=== PATIENT | female | born 1965 | race African-American/Black ===

== ENCOUNTER 2016-10-24 14:01 | Emergency (ER) | payer MEDICAID, OTHER ==
[~2016-10-24] VITALS: Ht 154.9 cm; Wt 65.8 kg
[~2016-10-24 14:01] MED LIST: CYCLOBENZAPRINE10 MG ORAL; DIFLUCAN150 MG PO; IBUPROFEN600 MG ORAL; METRONIDAZOLE500 MG ORAL; NAPROSYN250 M1 ORAL
[2016-10-24 14:09] VITALS: BP 180/96
--- NOTE | 2016-10-24 14:30 | Emergency Room Report ---
History of Present Illness General Chief Complaint: Flu Like Symptoms Source: Patient Present Illness HPI 51 YO Female presents to the ED c/o non-productive cough, nasal congestion, body -aches, chills and sneezing x 5 days. Denies fevers, abdominal pain or rashes. Patient reports on have similar symptoms denies recent travel. denies neck pain or stiffness. Denies CP, Palpitations, LOC, AMS, dizziness, Changes in Vision, Sensation, paresthesias, or a sudden severe headache. Allergies: Coded Allergies: No Known Allergies (Unverified , 04/04/15) Patient History Past Medical History: see triage record Past Surgical History: none Pertinent Family History: none Last Menstrual Period: na Now: No Immunizations: UTD Reviewed Nursing Documentation: PMH: Agreed, PSxH: Agreed Nursing Documentation-PMH Past Medical History: No History, Except For Review of Systems All Other Systems: negative except mentioned in HPI Physical Exam Vital Signs Date Time Temp Pulse Resp B/P Pulse Ox O2 Delivery O2 Flow Rate FiO2 10/24/16 14:09 98.4 99 18 180/96 100 Room Air Sp02 EP Interpretation: reviewed, normal General Appearance: no apparent distress, alert, GCS 15, non-toxic Head: normocephalic, atraumatic Eyes: bilateral eye PERRL, bilateral eye normal inspection ENT: hearing grossly normal, normal pharynx, no angioedema, normal voice, TMs + canals normal, uvula midline, moist mucus membranes, nasal congestion Neck: full range of motion, supple/symm/no masses Respiratory: lungs clear, normal breath sounds, speaking full sentences Cardiovascular #1: regular rate, rhythm, no edema Rectal: deferred Genitourinary: normal inspection, no CVA tenderness Musculoskeletal: back normal, gait/station normal, normal range of motion, non- tender Neurologic: alert, oriented x3, responsive, motor strength/tone normal, sensory intact, speech normal Psychiatric: judgement/insight normal, memory normal, mood/affect normal Skin: normal color, no rash, warm/dry, well hydrated Lymphatic: adenopathy - anterior cervical LAD bilaterally Medical Decision Making PA Attestation Dr. dominguez is my supervising Physician whom patient management has been discussed with. Diagnostic Impression: Primary Impression: Upper respiratory infection, viral Additional Impressions: Rhinitis Qualified Codes: J30.9 - Allergic rhinitis, unspecified Nasal congestion with rhinorrhea Post-nasal drainage ER Course Pt. presents to the ED c/o non-productive cough, nasal congestion, body-aches, chills and sneezing x 5 days. Ddx considered but are not limited to URI, pneumonia, PE, strep pharyngitis, meningitis, rhinitis Vital signs: Pt. is afebrile, the remaining VS are WNL H&PE are most consistent with URI- no meningeal signs, oropharynx is not involved, no evidence of bacterial infection at this time. ORDERS: none required at this time, the diagnosis is clinical ED INTERVENTIONS: None required at this time. --PT. EDUCATION: Discussed antibiotic resistance with inappropriate prescribing of antibiotics for viral illnesses. Discussed signs and symptoms to indicate viral illness versus bacterial illness. DISCHARGE: At this time pt. is stable for d/c to home. Will provide printed patient care instructions, and any necessary prescriptions. Care plan and follow up instructions have been discussed with the patient prior to discharge. Last Vital Signs Date Time Temp Pulse Resp B/P Pulse Ox O2 Delivery O2 Flow Rate FiO2 10/24/16 14:09 98.4 99 18 180/96 100 Room Air Disposition: HOME, SELF-CARE Condition: Stable Scripts Guaifenesin (Guaifenesin) 1,200 Mg Tab.er.12h 1200 MG PO BID for 10 Days, #20 TAB Prov: Siria Herrera.A. 10/24/16 Cetirizine Hcl/Pseudoephedrine (ZYRTEC-D TABLET) 1 Each Tab.er.12h 1 EACH ORAL Q12HR for 10 Days, #20 TAB Prov: Siria Herrera.A. 10/24/16 Codeine/Promethazine Hcl* (PROMETHAZINE-CODEINE SYRUP*) 118 Ml Syrup 5 ML ORAL Q6H Y for For Cough, #118 ML 0 Refills Prov: Siria Herrera.A. 10/24/16 Acetaminophen* (TYLENOL EXTRA STRENGTH*) 500 Mg Tablet 500 MG ORAL Q6H, #20 TAB 0 Refills Prov: Siria Herrera P.A. 10/24/16 Patient Instructions: Upper Respiratory Infection, Adult, [id number] Additional Instructions: Take medications as directed. Follow up with a Primary Care Provider in 3-5 days Return sooner to ED if new symptoms occur, or current symptoms become worse. Do not drink alcohol, drive, or operate heavy machinery while taking Cough Syrup as this may cause drowsiness. - Please note that this Emergency Department Report was dictated using [employer] edger technology software, occasionally this can lead to erroneous entry secondary to interpretation by the dictation equipment. Siria Herrera. Oct 24, 2016 14:30
[2016-10-24] MEDS ORDERED: TYLENOL EXTRA500 MG ORAL (14:33)
[2016-10-24] MEDS ORDERED: ZYRTEC-D TABLE1 EACH ORAL (14:33)
[2016-10-24] MEDS ORDERED: PROMETHAZINE-C118 M1 ORAL (14:33)
[2016-10-24] MEDS ORDERED: GUAIFENESIN1200 MG PO (14:33)
[2016-10-24 14:37] VITALS: BP 175/82
== END 2016-10-24 14:45 | disposition home or self-care (01) ==
LOC: EMR 14:45
DX: J06.9 Acute upper respiratory infection, unspecified (principal); B34.9 Viral infection, unspecified; J31.0 Chronic rhinitis
CPT/HCPCS: 99284

== ENCOUNTER 2018-07-24 13:29 | Emergency (ER) | payer MEDICAID, OTHER ==
[~2018-07-24] VITALS: Ht 157.5 cm; Wt 57.2 kg
[~2018-07-24 13:29] MED LIST changes: +GUAIFENESIN1200 MG PO; +PROMETHAZINE-C118 M1 ORAL; +TYLENOL EXTRA500 MG ORAL; +ZYRTEC-D TABLE1 EACH ORAL
[2018-07-24 13:39] VITALS: BP 127/83
--- NOTE | 2018-07-24 13:45 | NUR ---
ED Nurse Note: Patient walked into ED from home c/o right shoulder pain. patient reports that she pulled her right shoulder while excercising on 07/22/18, patient is alert and awake, ambulatory.
--- NOTE | 2018-07-24 13:57 | Emergency Room Report ---
History of Present Illness General Chief Complaint: Upper Extremity Injury Source: Patient Present Illness HPI 53-year-old female patient presents ER complaining of "I think I pulled a muscle in my shoulder". Reports she was working out at the gym when she began to experience pain in her right shoulder and scapula. Reports was doing a side twist exercise with her arms extended when the pain symptoms began. Reports pain worse with movement. Denies loss of range of motion. Reports pain in the posterior shoulder near her scapula. Denies fever, chest pain or shortness of breath. Denies history of diabetes. Reports he is right-hand dominant. Allergies: Coded Allergies: No Known Allergies (Unverified , 04/04/15) Patient History Past Medical History: see triage record Now: No Reviewed Nursing Documentation: PMH: Agreed; PSxH: Agreed Nursing Documentation-PMH Past Medical History: No History, Except For Review of Systems All Other Systems: negative except mentioned in HPI Physical Exam Vital Signs Date Time Temp Pulse Resp B/P (MAP) Pulse Ox O2 Delivery O2 Flow Rate FiO2 07/24/18 13:39 97.9 71 20 127/83 97 Sp02 EP Interpretation: reviewed, normal General Appearance: well appearing, no apparent distress, alert, GCS 15, non- toxic Head: normocephalic, atraumatic Eyes: bilateral eye normal inspection, bilateral eye PERRL ENT: hearing grossly normal, normal pharynx, no angioedema, normal voice, uvula midline, moist mucus membranes Neck: full range of motion, no bony tend Respiratory: lungs clear, normal breath sounds, no rhonchi, no respiratory distress, no accessory muscle use, no wheezing, speaking full sentences Cardiovascular #1: regular rate, rhythm, no edema Cardiovascular #2: 2+ radial (R), 2+ radial (L) Musculoskeletal: back normal, digits/nails normal, gait/station normal, normal range of motion, other - No deformity, negative Morales, negative Neer impingement, negative empty can, negative belly press, negative back pushoff, tender - Distal inferior right scapula Psychiatric: mood/affect normal Skin: no rash Medical Decision Making PA Attestation Dr. Acosta is my supervising Physician whom patient management has been discussed with. Diagnostic Impression: Primary Impression: Shoulder strain ER Course Pt. presents to the ED c/o "pulled muscle in right shoulder". Ddx considered but are not limited to fracture, sprain, strain, contusion, dislocation. No erythema, no warmth to touch, no fever, nontoxic appearing, low suspicion for septic joint. Soft compartments, no pulselessness, no pallor, no paresthesias, low suspicion for compartment syndrome at this time. Vital signs: are WNL, pt. is afebrile ER COURSE Provided with pain and muscle relaxant medication. An X-ray of the right scapula negative for acute disease per the preliminary reading. Patient instructed on RICE method: rest, ice, compression, elevation. Patient instructed on rest, ice and heat. Patient instructed to be WBAT Contact information for orthopedic urgent care provided, follow-up with urgent care if unable to followup with primary care provider and get referral to event specialist product demonstrator. Followup with primary care provider. Discuss referral to ortho/pain management/ PT as needed. Discuss further imaging with MRI/CT as needed. ER precautions DISCHARGE: At this time pt. is stable for d/c to home. Patient is resting comfortably, in no acute distress, nontoxic appearing, talking without difficulty. Will provide printed patient care instructions, and any necessary prescriptions. Patient instructed to follow with primary care provider in 3 - 5 days and to request further follow-up as needed. Care plan and follow up instructions have been discussed with the patient prior to discharge. Take medications as directed. Patient questions asked and answered. Patient reports understanding and agreement to treatment plan. ER precautions given, patient instructed to return to ER immediately for any new or worsening of symptoms. - Please note that this Emergency Department Report was dictated using [employer] facer technology software, occasionally this can lead to erroneous entry secondary to interpretation by the dictation equipment. Other X-Ray Diagnostic Results Other X-Ray Diagnostic Results : X-Ray ordered: Scapula right # of Views/Limited Vs Complete: 3 View Indication: Pain EP Interpretation: Yes PA Xray: Interpretation reviewed, by supervising MD, and agrees with findings. Interpretation: no dislocation, no soft tissue swelling, no fractures Impression: No acute disease LEOLA Scribe Text Trung Noriega PA-C Last Vital Signs Date Time Temp Pulse Resp B/P (MAP) Pulse Ox O2 Delivery O2 Flow Rate FiO2 07/24/18 13:39 97.9 71 20 127/83 97 Status: improved Disposition: HOME, SELF-CARE Condition: Stable Scripts Methocarbamol* (ROBAXIN*) 500 Mg Tablet 500 MG PO TID, #21 TAB 0 Refills Prov: Moris Noriega 07/24/18 Ibuprofen* (MOTRIN*) 600 Mg Tablet 600 MG ORAL Q8H PRN for For Pain, #30 TAB 0 Refills Prov: Moris Noriega 07/24/18 Patient Instructions: Shoulder Range of Motion Exercises, Shoulder Sprain Additional Instructions: Patient instructed to follow up with primary care provider and discuss further referral to orthopedics/physical therapy/pain management as needed. If unable to followup with PCP, followup with orthopedic urgent care in 5-7 days , call to schedule appointment. Patient instructed on RICE method: rest, ice, compression, elevation. Patient instructed to WBAT. Take medications as directed. Patient questions asked and answered. ER precautions given, patient instructed to return to ER immediately for any new or worsening of symptoms. [facility] [address] [address] [facility], [address] [email or web address] Moris Noriega Jul 24, 2018 13:57
[2018-07-24] MEDS ORDERED: Methocarbamol 500mg tab ORAL ONE (14:00)
[2018-07-24] MEDS ORDERED: Ketorolac 30mg Inj IM ONE (14:00)
--- NOTE | 2018-07-24 14:40 | NUR ---
ED Nurse Note: patient went down for xray
--- NOTE | 2018-07-24 14:50 | NUR ---
ED Nurse Note: patient came back from xray
[2018-07-24] MEDS ORDERED: IBUPROFEN600 MG ORAL (15:14)
[2018-07-24] MEDS ORDERED: ROBAXIN500 MG PO (15:14)
--- NOTE | 2018-07-24 15:20 | NUR ---
ER DISCHARGE NOTE: Patient is cleared to be discharged per ERMD, pt is aox4, on room air, with stable vital signs. pt was given dc and prescription instructions, pt was able to verbalize understanding, pt id band removed without complications. pt is able to ambulate with steady gait. pt took all belongings.
[2018-07-24 15:22] VITALS: BP 120/81
--- NOTE | 2018-07-24 16:53 | Diagnostic Imaging Report ---
Indication: Pain in right scapular area from twisting motion Technique: 2 views of the right scapula Comparison: none Findings: No fractures are demonstrated. The shoulder appears normal. The joint spaces are preserved. The ribs appear intact Impression: Negative
== END 2018-07-24 15:20 | disposition home or self-care (01) ==
LOC: EMR 14:11
DX: S43.401A Unspecified sprain of right shoulder joint, initial encounter (principal); X58.XXXA Exposure to other specified factors, initial encounter; Y93.B9 Activity, other involving muscle strengthening exercises; Y92.9 Unspecified place or not applicable
CPT/HCPCS: 73010; 96372; 99283; J1885

== ENCOUNTER 2019-04-27 16:23 | Emergency (ER) | payer MEDICAID ==
[~2019-04-27] VITALS: Ht 154.9 cm; Wt 59.0 kg
[~2019-04-27 16:23] MED LIST changes: +ROBAXIN500 MG PO
[2019-04-27 16:32] VITALS: BP 115/68
[2019-04-27] MEDS ORDERED: ATORVASTATIN CA20 MG ORAL (16:32)
[2019-04-27] MEDS ORDERED: VITAMIN D350000 UNIT PO (16:32)
--- NOTE | 2019-04-27 17:22 | Diagnostic Imaging Report ---
EXAM: XR Right Knee, 3 Views CLINICAL HISTORY: PAIN TECHNIQUE: Three views of the right knee. COMPARISON: No relevant prior studies available. FINDINGS: Bones/joints: No acute displaced fracture or dislocation. No significant joint effusion. Soft tissues: Unremarkable. IMPRESSION: No acute displaced fracture or dislocation.
--- NOTE | 2019-04-27 17:43 | Emergency Room Report ---
History of Present Illness General Chief Complaint: Pain Source: Patient Present Illness HPI 54-year-old female with no significant past medical history here complaining of sudden onset of a 7 out of 10 right knee pain without any fall or injury x3 days. Patient has full range of motion, upon flexion extension of the knee denies any pain at this time. Reports that yesterday she had her pain at its worse and could not apply any pressure to her right knee. Denies any calf tenderness, swelling, recent travel, and sitting in the airplane for prolonged hours, cancer history, surgical history, and being on control. Denies any tingling or numbness at this time. She is postmenopausal. Has not taken medication for symptom relief. Denies all other injuries, chest pain, shortness of breath, palpitation, no other associated symptoms. Allergies: Coded Allergies: No Known Allergies (Unverified , 04/04/15) Patient History Past Medical History: see triage record Past Surgical History: unable to obtain Pertinent Family History: none Now: No Immunizations: UTD Reviewed Nursing Documentation: PMH: Agreed; PSxH: Agreed Nursing Documentation-PMH Past Medical History: No History, Except For Review of Systems All Other Systems: negative except mentioned in HPI Physical Exam Vital Signs Date Time Temp Pulse Resp B/P (MAP) Pulse Ox O2 Delivery O2 Flow Rate FiO2 04/27/19 16:27 98.2 98 17 115/68 (84) 99 Room Air Sp02 EP Interpretation: reviewed, normal General Appearance: no apparent distress, alert, GCS 15, non-toxic Head: normocephalic, atraumatic Eyes: bilateral eye normal inspection, bilateral eye PERRL ENT: hearing grossly normal, normal pharynx, no angioedema, normal voice Neck: full range of motion, supple, no meningismus, supple/symm/no masses Respiratory: chest non-tender, lungs clear, normal breath sounds, no rhonchi, no retraction, no wheezing, speaking full sentences Cardiovascular #1: regular rate, rhythm, no edema, no JVD, no murmur, normal capillary refill Cardiovascular #2: 2+ dorsalis pedis (R), 2+ dorsalis pedis (L) Gastrointestinal: normal bowel sounds, non tender, soft, non-distended, no guarding, no rebound Genitourinary: no CVA tenderness Musculoskeletal: back normal, normal range of motion, digits/nails normal, no calf tenderness, pelvis stable, gait/station normal, non-tender Neurologic: alert, motor strength/tone normal, oriented x3, sensory intact, responsive, speech normal Psychiatric: judgement/insight normal, memory normal, mood/affect normal, no suicidal/homicidal ideation Skin: no rash Lymphatic: no adenopathy Medical Decision Making PA Attestation All my diagnosis and treatment plans were reviewed ad discussed with my supervising physician Dr. Acosta Diagnostic Impression: Primary Impression: Arthritis Additional Impression: Knee sprain ER Course 54-year-old female with no significant past medical history here complaining of sudden onset of a 7 out of 10 right knee pain without any fall or injury x3 days. Patient has full range of motion, upon flexion extension of the knee denies any pain at this time. Reports that yesterday she had her pain at its worse and could not apply any pressure to her right knee. Denies any calf tenderness, swelling, recent travel, and sitting in the airplane for prolonged hours, cancer history, surgical history, and being on control. Denies any tingling or numbness at this time. She is postmenopausal. Has not taken medication for symptom relief. Denies all other injuries, chest pain, shortness of breath, palpitation, no other associated symptoms. Ddx considered but are not limited to: Knee sprain, strain, fracture, contusion , meniscus tear injury Vital signs: are WNL, pt. is afebrile H&PE are most consistent with: Knee sprain, arthritis of the knee ORDERS: Knee x-ray, lidocaine patch, Robaxin, Motrin ER intervention: lidocaine patch DISCHARGE: At this time pt. is stable for d/c to home. Will provide printed patient care instructions, and any necessary prescriptions. Care plan and follow up instructions have been discussed with the patient prior to discharge. Patient to follow-up with her primary care provider, take medication as directed, if worsening symptoms return to the emergency room. Other X-Ray Diagnostic Results Other X-Ray Diagnostic Results : X-Ray ordered: Right knee # of Views/Limited Vs Complete: 3 View Indication: Pain EP Interpretation: Yes PA Xray: Interpretation reviewed, by supervising MD, and agrees with findings. Interpretation: no dislocation, no soft tissue swelling, no fractures Impression: No acute disease Electronically Signed by: Jamel BHAGAT Scribe Text IMPRESSION: No acute displaced fracture or dislocation. Last Vital Signs Date Time Temp Pulse Resp B/P (MAP) Pulse Ox O2 Delivery O2 Flow Rate FiO2 04/27/19 16:32 98.1 61 17 115/68 99 Room Air Disposition: HOME, SELF-CARE Condition: Stable Scripts Lidocaine Patch* (Lidoderm Patch*) 1 Each Adh..patch 1 PATCH TOPIC DAILY, #7 PATCH 0 Refills Patch(es) may remain in place for up to 12 hours in any 24-hour period. Prov: Jamel Simon 04/27/19 Ibuprofen* (MOTRIN*) 600 Mg Tablet 600 MG ORAL Q8H PRN for For Pain, #30 TAB 0 Refills Prov: Jamel Simon 04/27/19 Methocarbamol* (ROBAXIN-500*) 500 Mg Tablet 500 MG ORAL TID PRN for For Pain, #15 TAB 0 Refills Prov: Jamel Simon 04/27/19 Patient Instructions: Arthritis, Uban-ev-Iwjc, Knee Sprain, Dnva-ar-Ooym Additional Instructions: , Take medication as directed, follow-up with your primary care provider, if worsening symptoms return to the emergency room Jamel Simon Apr 27, 2019 17:43
[2019-04-27] MEDS ORDERED: IBUPROFEN600 MG ORAL (17:45)
[2019-04-27] MEDS ORDERED: ROBAXIN-500MG ORAL (17:45)
[2019-04-27] MEDS ORDERED: LIDODERM700 M1 TOPIC (17:45)
[2019-04-27 18:04] VITALS: BP 115/68
== END 2019-04-27 18:04 | disposition home or self-care (01) ==
LOC: EMR 17:43
DX: S83.91XA Sprain of unspecified site of right knee, initial encounter (principal); M17.11 Unilateral primary osteoarthritis, right knee; X58.XXXA Exposure to other specified factors, initial encounter; Y93.9 Activity, unspecified; Y92.9 Unspecified place or not applicable
CPT/HCPCS: 73562; Z7502; 99283

== ENCOUNTER 2020-04-26 17:16 | Emergency (ER) | payer MEDICAID ==
[~2020-04-26] VITALS: Ht 154.9 cm; Wt 59.0 kg
[~2020-04-26 17:16] MED LIST changes: +AFRIN NASAL SPR30 ML NASAL; +ATORVASTATIN CA20 MG ORAL; +LIDODERM700 M1 TOPIC; +ROBAXIN-500MG ORAL; +TAMIFLU75 MG ORAL; +VITAMIN D350000 UNIT PO
[2020-04-26 17:23] VITALS: BP 164/94
--- NOTE | 2020-04-26 17:53 | Emergency Room Report ---
History of Present Illness General Chief Complaint: Upper Respiratory Illness Source: Patient Present Illness HPI 55-year-old female with no significant past medical history here complaining of 1 day of cough, congestion and chills. Denies loss of taste and smell, diarrhea, chest pain. Appears to be stable with stable vital signs. Denies tobacco smoke, alcohol intake reports that she smokes marijuana. Denies . Has not taken medication for symptom relief. 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 COVID-19 Screening: Negative COVID-19 COVID-19 Testing Source: 4 months ago Patient History Past Medical History: see triage record Past Surgical History: none Pertinent Family History: none Now: No Immunizations: UTD Reviewed Nursing Documentation: PMH: Agreed; PSxH: Agreed Nursing Documentation-PMH Past Medical History: No History, Except For Review of Systems All Other Systems: negative except mentioned in HPI Physical Exam Vital Signs Date Time Temp Pulse Resp B/P (MAP) Pulse Ox O2 Delivery O2 Flow Rate FiO2 04/26/20 17:23 99.0 101 15 164/94 (117) 97 Room Air Sp02 EP Interpretation: reviewed, normal General Appearance: no apparent distress, alert, GCS 15, non-toxic Head: normocephalic, atraumatic Eyes: bilateral eye normal inspection, bilateral eye PERRL ENT: hearing grossly normal, no angioedema, normal voice Neck: supple Respiratory: no respiratory distress, no retraction, no accessory muscle use Cardiovascular #1: regular rate, rhythm Gastrointestinal: soft, non-distended Rectal: deferred Musculoskeletal: back normal Neurologic: alert, motor strength/tone normal, oriented x3, sensory intact, responsive, speech normal Psychiatric: judgement/insight normal, memory normal, mood/affect normal, no suicidal/homicidal ideation Skin: no rash Lymphatic: no adenopathy Medical Decision Making PA Attestation All diagnoses and treatment plans were reviewed and discussed with my supervising physician Dr. Wakefield Diagnostic Impression: Primary Impression: Upper respiratory infection ER Course 55-year-old female with no significant past medical history here complaining of 1 day of cough, congestion and chills. Denies loss of taste and smell, diarrhea, chest pain. Appears to be stable with stable vital signs. Denies tobacco smoke, alcohol intake reports that she smokes marijuana. Denies . Has not taken medication for symptom relief. Ddx considered but are not limited to: bronchitis, PNA, URI viral, bacterial bronchitis, coronavirus Vital signs: are WNL, pt. is afebrile H&PE are most consistent with: URI, suspected coronavirus ORDERS: Chest x-ray, azithromycin, prednisone, Phenergan ED INTERVENTIONS: None required at this time. DISCHARGE: At this time pt. is stable for d/c to home. Will provide printed patient care instructions, and any necessary prescriptions. Care plan and follow up instructions have been discussed with the patient prior to discharge. Recommend patient to get tested for Covid. Take medication as directed, self isolate, if worsening symptoms return to the emergency room Chest X-Ray Diagnostic Results Chest X-Ray Diagnostic Results : # of Views/Limited/Complete: 1 View Indication: Other - cough EP Interpretation: Yes PA Xray: Interpretation reviewed, by supervising MD, and agrees with thu marcus. Interpretation: no consolidation, no effusion, no pneumothorax Impression: No acute disease Electronically Signed by: Jamel Broderick PA-C Last Vital Signs Date Time Temp Pulse Resp B/P (MAP) Pulse Ox O2 Delivery O2 Flow Rate FiO2 04/26/20 17:27 101 15 Room Air 04/26/20 17:23 99.0 164/94 97 Disposition: HOME, SELF-CARE Condition: Stable Scripts Promethazine Hcl (PROMETHAZINE HCL*) 6.25 Mg/5 Ml Syrup 5 ML ORAL Q8H, #120 ML 0 Refills Prov: Jamel Simon 04/26/20 Prednisone* (PREDNISONE*) 20 Mg Tablet 40 MG ORAL DAILY for 5 Days, #10 TAB Prov: Jamel Simon 04/26/20 Azithromycin* (ZITHROMAX*) 250 Mg Tablet 250 MG ORAL DAILY, #6 TAB 0 Refills Take two tables once daily for 1 day, then one tablet once daily for 4 days. Prov: Jamel Simon 04/26/20 Referrals: [facility],REFERRING (PCP) Patient Instructions: Upper Respiratory Infection, Adult Additional Instructions: Take medication as directed, follow primary care provider, I recommend you get tested for Covid in 2 to 3 days after the onset of your symptoms, self isolate. If worsening symptom, shortness of breath return to the emergency room Jamel Simon Apr 26, 2020 17:53
[2020-04-26] MEDS ORDERED: PROMETHAZI6.25 MG/1 ORAL (17:55)
[2020-04-26] MEDS ORDERED: PREDNISONE20 MG ORAL (17:55)
[2020-04-26] MEDS ORDERED: ZITHROMAX250 MG ORAL (17:55)
[2020-04-26 18:00] VITALS: BP 152/90
--- NOTE | 2020-04-26 18:40 | Diagnostic Imaging Report ---
EXAM: XR Chest, 1 View CLINICAL HISTORY: COUGH TECHNIQUE: Frontal view of the chest. COMPARISON: No relevant prior studies available. FINDINGS: Lungs: Unremarkable. No consolidation. Pleural space: Unremarkable. No pneumothorax. Heart: Unremarkable. No cardiomegaly. Mediastinum: Unremarkable. Bones/joints: Unremarkable. IMPRESSION: Normal chest x-ray.
== END 2020-04-26 18:00 | disposition home or self-care (01) ==
LOC: EMR 17:48
DX: J06.9 Acute upper respiratory infection, unspecified (principal)
CPT/HCPCS: 71045; Z7502; 99283

== ENCOUNTER 2020-05-09 22:31 | Emergency (ER) | payer MEDICAID ==
[~2020-05-09] VITALS: Ht 157.5 cm; Wt 59.0 kg
[~2020-05-09 22:31] MED LIST changes: +PREDNISONE20 MG ORAL; +PROMETHAZI6.25 MG/1 ORAL; +ZITHROMAX250 MG ORAL
[2020-05-09 23:00] VITALS: BP 149/81
[2020-05-09] MEDS ORDERED: Azithromycin 250mg tab ORAL ONE (23:00)
[2020-05-09] MEDS ORDERED: ZITHROMAX250 MG ORAL (23:01)
[2020-05-09] MEDS ORDERED: PROVENTIL HFA6.7 G1 IH (23:01)
[2020-05-09] MEDS ORDERED: TYLENOL EXTRA500 MG ORAL (23:01)
[2020-05-09] MEDS ORDERED: GUAIFENESIN DM118 M1 ORAL (23:01)
--- NOTE | 2020-05-09 23:01 | Emergency Room Report ---
History of Present Illness General Chief Complaint: Flu Like Symptoms Source: Patient Present Illness HPI 55-year-old female no prior medical history presenting with chief complaint of cough x3 weeks. Cough is nonproductive. Also associated with loss of taste and smell. Denies nausea, vomiting, diarrhea, hemoptysis, shortness of breath, chest pain, fever, headache, vision changes, neck pain, rash or any other symptoms. Positive sick contacts. patient's symptoms were gradual onset, severity was moderate, duration since 21 days. Quality: Dry cough Past medical history: Denies Past surgical history: Denies Smoking: Occasional tobacco use Alcohol use: Denies Drug use: Denies Review of systems: CONST: No fevers or chills, No night sweats PULMONARY: No productive cough, No shortness of breath CARDIAC: No chest pain, No palpitations GI: No vomiting, No diarrhea , No melena_or_BRBPR : No dysuria, No hematuria, No discharge NEURO: No new_focal_weakness_or_numbness, No confusion, No vision changes 14 point Review of Systems is otherwise negative except per HPI Physical Exam: GENERAL: Awake_alert_ nontoxic, no acute distress Spo2 98% on RA -normal EYES: Extraocular muscles are intact. Conjunctivae clear. Lids without swelling ENT: External nose and ear normal_in_appearance. Oropharynx clear. Head_atraumatic, Moist_oral_mucosa NECK: No JVD. No meningismus. No thyromegaly. Supple. Trachea midline RESP: Normal respiratory effort. Symmetric rise. No stridor. Clear_to_auscultation_No_rales_No_wheezes CARDIAC: Regular rate and regular rhytm. No_significant pedal edema. ABDOMEN: Soft. Nondistended. Nontender_No_rebound_or_guarding. MSK: Normal muscle tone, without rigidity. Extremities without asymmetric deformity or swelling. SKIN: Warm and dry. No visible cyanosis or pallor NEUROLOGIC: Alert, oriented x3. Motor_and_sensation_grossly_intact. No truncal ataxia. Gait_normal Psych: Normal mood and affect, normal judgment and insight - COORDINATION OF CARE Case was discussed with: Patient Any labs and imaging that were ordered were interpreted as part of the medical decision making: Medical Decision Making/Plan: DDx: includes COVID-19 / coronavirus infection, URI, bronchitis, viral syndrome, postnasal drip, versus less likely pneumonia, among others. The patient is nontoxic and well-appearing and has no significant shortness of breath or fever . The patient exhibits no evidence of respiratory distress. No evidence of ENT emergency, airway patent, tolerating oral liquids and solids. No stridor or difficulty breathing. Chest x-ray revealed L perihilar pna. Rapid COVID swab was positive. 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 The patient was instructed to follow up with their physician and instructed to return if worsens, progressively worsening shortness of breath or difficulty breathing, persistent fever, chest pains or discomfort, inability to keep medication or fluids down with or without vomiting, or any other new, worsening or concerning symptoms Patient was nontoxic with benign vital signs. Patient did not meet admission criteria and was stable for outpatient therapy. Patient was instructed to home quarantine for 14 days or until 3 days after their last fever, whichever is longer. Appropriate precautions were given. Strict return precautions given, including but limited to: Patient educated to notify a healthcare professional if they develop further symptoms that include chest pain, palpitations, significant SOB, fever, or other concerning symptoms. Discussed supportive care with rest, hydration, frequent handwashing and Tylenol and Motrin [id number] as needed for pain or fevers. Discussed strict return precautions. Verbal discharge with written instructions were given for COVID- 19. Patient is instructed to follow up with their primary care provider in 1-2 days, or return to the ED for worsening symptoms. Return to ED precautions were given. 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 Mediastinum normal. L perihilar infiltrate. Impression: L perihilar infiltrate The X-ray(s) were independently viewed and interpreted contemporaneously Electronically signed by Mariela bowers DO Reevaluation Time: 22:59 Last Vital Signs Date Time Temp Pulse Resp B/P (MAP) Pulse Ox O2 Delivery O2 Flow Rate FiO2 05/09/20 22:34 98.2 89 20 149/81 (103) 98 Room Air Status: improved Disposition: HOME, SELF-CARE Admit Decision Time: 22:59 Condition: Stable Scripts Albuterol Sulfate (PROVENTIL HFA) 6.7 Gm Hfa.aer.ad 6.7 GM IH QID for 7 Days, #6.7 GM Prov: Mariela Vigil D.O. 05/09/20 Acetaminophen* (TYLENOL EXTRA STRENGTH*) 500 Mg Tablet 500 MG ORAL Q8H PRN for Prn Headache/Temp > 101, #30 TAB 0 Refills Prov: Mariela Vigil D.O. 05/09/20 Guaifenesin/Dextromethorphan* (Guaifenesin Dm Syrup*) 5 Ml Syrup 5 ML ORAL Q6H PRN for FOR COUGH, #118 ML Prov: Mariela Vigil D.O. 05/09/20 Azithromycin* (ZITHROMAX*) 250 Mg Tablet 250 MG ORAL DAILY, #6 TAB 0 Refills Take two tables once daily for 1 day, then one tablet once daily for 4 days. Prov: Mariela Vigil D.O. 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 DO NOT GO TO WORK UNTIL COVID NEGATIVE Follow-up with your doctor sooner if your condition requires a more timely clinical reevaluation. Return to the emergency department immediately if you feel that your condition is worsening or if you have any new or concerning symptoms. Review your discharge instructions and take any prescriptions given as instructed. [facility] PROVIDES FREE OR LOW-COST HEALTH SERVICES TO PEOPLE WHO CAN SHOW PROOF THAT THEY LIVE IN [facility]. TO FIND MORE CLINICS PARTNERED WITH THE REPLACED BY [facility] TO PROVIDE SERVICE, PLEASE CALL . Your evaluation suggests that you are suffering from a viral infection producing a viral syndrome. You can sign up for testing with [facility] at the following website as discussed [email or web address] Symptoms of a viral syndrome may include fever, sore throat, headache, body aches and pains, generalized weakness and fatigue, and runny nose. You do not show signs or symptoms suggestive of a serious or life threatening illness. This illness may be caused by a number of different viruses, including Influenza A or B or COVID-19. These viruses are highly contagious and spread rapidly from person to person via coughing and sneezing of the virus or by contaminated surface contact with nasal or other respiratory secretions. These viruses cause a similar combination of signs and symptoms which are typically much more severe than the common cold. Typically they begin with the rapid onset of fever, often high (over 102), body aches, fatigue, headache, and usually upper respiratory tract infections symptoms such as cough, runny nose, and sore throat. The illness typically lasts 7-10 days, with the fever and feelings of weakness and body aches usually lasting 3-5 days. Your own immune system fights off these infections. Only rarely do secondary bacterial infections occur (such as bacterial pneumonia) and can be serious. At this time your symptoms do not appear serious, however, there are limitations to online visits and if you are not improving you may need to be evaluated by a doctor in person and that doctor may need to do additional tests. INSTRUCTIONS: Illnesses such as yours typically resolve on their own with time however you must remember to stay hydrated and drink 2-3 times your normal fluid intake, as fever and your increased metabolism in fighting the infection uses more water. Fever control is important to help you feel better and to help prevent dehydration. Acetaminophen is an excellent choice for fever control and other symptoms (as long as you are not allergic to the medication). Rest is also important in helping your body fight this infection. Over the counter cough and decongestant medications are safe (as long as you dont have uncontrolled high blood pressure) and may help the cough and congestion slightly. As these viruses are highly contagious, good hand washing habits, and covering your cough and sneeze help prevent spread. Fever can be a sign of a serious infection and it is imperative that you go directly to an Emergency Department for serious symptoms such as weakness, confusion, significant shortness of breath, abdominal pain, or severe headache. Close follow up with a physician is important if you are not improving over the next few days or you experience worsening of your symptoms. Although it is impossible to know at this point if you have COVID-19 (the Epstein virus), please quarantine yourself and anyone else that is residing with you for the longer of the following time periods: 14 days OR 3 days after the last of your symptoms has resolved CONTACT THE DOCTOR RIGHT AWAY if you develop worsening symptoms such as shortness of breath, chest pain, neck stiffness, confusion or any other new, worsening, or concerning symptoms. For emergencies contact 911 immediately. Mariela Vigil D.O. May 09, 2020 23:01
--- NOTE | 2020-05-09 23:16 | Diagnostic Imaging Report ---
INDICATION: Cough COMPARISON: FINDINGS: Single frontal view demonstrates a normal cardiomediastinal silhouette. Costophrenic angles are clear. Mild left perihilar developing infiltrate or atelectasis.. No pleural effusions. The visualized osseous structures are within normal limits. IMPRESSION: 1. Left perihilar developing infiltrate or atelectasis.
[2020-05-10 00:30] VITALS: BP 134/84
== END 2020-05-10 00:30 | disposition home or self-care (01) ==
LOC: EMR 22:49
DX: U07.1 COVID-19 (principal); R05 Cough; R43.0 Anosmia
CPT/HCPCS: 71045; J8540; Q0144; U0002; Z7502; 99283

== ENCOUNTER 2020-06-22 14:09 | Emergency (ER) | payer MEDICAID ==
[~2020-06-22] VITALS: Ht 154.9 cm; Wt 56.7 kg
[~2020-06-22 14:09] MED LIST changes: +GUAIFENESIN DM118 M1 ORAL; +PROVENTIL HFA6.7 G1 IH
[2020-06-22 14:24] VITALS: BP 117/70
--- NOTE | 2020-06-22 14:26 | NUR ---
ED Nurse Note: pt stated that her right thumb and wrist hurts. she denies injury. states it only hurts when she moves it.
--- NOTE | 2020-06-22 15:01 | NUR ---
ED Nurse Note: placed wrist splint on pt's right wrist. she stated she could already feel a difference in having it on. educated pt on how to wear it and addressed her questions
[2020-06-22] MEDS ORDERED: TYLENOL EXTRA500 MG ORAL (15:06)
--- NOTE | 2020-06-22 15:23 | NUR ---
ER DISCHARGE NOTE: Patient is cleared to be discharged per ERMD, pt is aox4, on room air, with stable vital signs. pt was given dc and prescription instructions, pt was able to verbalize understanding. pt is able to ambulate with steady gait. pt took all belongings.
--- NOTE | 2020-06-22 15:27 | Diagnostic Imaging Report ---
EXAM: XR Right Wrist Complete, 3 or More Views CLINICAL HISTORY: PAIN TECHNIQUE: Frontal, lateral and oblique views of the right wrist. COMPARISON: No relevant prior studies available. FINDINGS: Bones/joints: Unremarkable. No acute fracture. No dislocation. Soft tissues: Unremarkable. No radiopaque foreign body. IMPRESSION: No acute abnormality definitively identified to account for patient presentation.
--- NOTE | 2020-06-22 17:00 | Emergency Room Report ---
History of Present Illness General Chief Complaint: Pain Source: Patient Present Illness HPI 55-year-old female presents with a right hand and wrist pain x1 month. Denies any fall or injury. States it hurts when she moves her thumb and it extends to her wrist. Pain is dull, 7 out of 10. Denies any other injuries. No other aggravating relieving factors. Denies any other associated symptoms Allergies: Coded Allergies: No Known Allergies (Unverified , 04/04/15) COVID-19 Screening Contact w/high risk pt: No Experienced COVID-19 symptoms?: No COVID-19 Testing performed INSPECTOR ALIGNING: Yes COVID-19 Screening: Positive COVID-19 COVID-19 Testing Source: 03/28 Patient History Past Medical History: none Past Surgical History: none Pertinent Family History: none Social History: Denies: smoking, alcohol use, drug use Now: No Immunizations: UTD Reviewed Nursing Documentation: PMH: Agreed; PSxH: Agreed Nursing Documentation-PMH Past Medical History: No History, Except For Review of Systems All Other Systems: negative except mentioned in HPI Physical Exam Vital Signs Date Time Temp Pulse Resp B/P (MAP) Pulse Ox O2 Delivery O2 Flow Rate FiO2 06/22/20 14:13 97.9 100 18 117/70 (86) 95 Room Air Sp02 EP Interpretation: reviewed, normal General Appearance: no apparent distress, alert, GCS 15, non-toxic Head: normocephalic, atraumatic Eyes: bilateral eye normal inspection, bilateral eye PERRL ENT: hearing grossly normal, normal pharynx, no angioedema, normal voice Neck: full range of motion, supple/symm/no masses Respiratory: chest non-tender, lungs clear, normal breath sounds, speaking full sentences Cardiovascular #1: regular rate, rhythm, no edema Cardiovascular #2: 2+ carotid (R), 2+ carotid (L), 2+ radial (R), 2+ radial (L), 2+ dorsalis pedis (R), 2+ dorsalis pedis (L) Gastrointestinal: normal bowel sounds, non tender, soft, non-distended, no guarding, no rebound Rectal: deferred Genitourinary: normal inspection, no CVA tenderness Musculoskeletal: back normal, normal range of motion, gait/station normal, tender - R wrist/thumb pain. no bruising/crepitus. no deformity Neurologic: alert, motor strength/tone normal, oriented x3, sensory intact, responsive, speech normal Psychiatric: judgement/insight normal, memory normal, mood/affect normal, no suicidal/homicidal ideation Reflexes: 3+ bicep (R), 3+ bicep (L), 3+ tricep (R), 3+ tricep (L), 3+ knee (R), 3+ knee (L) Lymphatic: no adenopathy Procedures Splinting Splinting : Consent: Verbal Pre-Made Type: velcro Splint: thumb spica Pre-Proc Neuro Vasc Exam: normal Post-Proc Neuro Vasc Exam: normal Patient Tolerated: Well Complications: None Medical Decision Making Diagnostic Impression: Primary Impression: Pain, wrist Qualified Codes: M25.531 - Pain in right wrist ER Course Hospital Course 55-year-old female presents with right wrist/thumb pain Differential diagnoses include: Fracture, dislocation, sprain, contusion Clinical course Patient placed on stretcher. After initial history and physical, I ordered Xrays of R wrist Xrays read shows no acute fracture/dislocation. Discussed findings with patient. Likely tendinitis. Would benefit from thumb spica, anti- inflammatories, ice. I will provide Ortho referral. Patient may benefit from outpatient physical therapy Diagnosis - wrist pain Stable and discharged to home with prescription for tylenol. apply ice, keep elevated. weight bear as tolerated. Followup with PMD. Return to ED if symptoms recur or worsen Other X-Ray Diagnostic Results Other X-Ray Diagnostic Results : X-Ray ordered: R wrist # of Views/Limited Vs Complete: 3 View Indication: Pain EP Interpretation: Yes Interpretation: no dislocation, no soft tissue swelling, no fractures Impression: No acute disease Electronically Signed by: Electronically signed by Aubrey Acsota MD Last Vital Signs Date Time Temp Pulse Resp B/P (MAP) Pulse Ox O2 Delivery O2 Flow Rate FiO2 06/22/20 14:24 97.9 18 117/70 95 Room Air 06/22/20 14:13 100 Status: improved Disposition: HOME, SELF-CARE Condition: Stable Scripts Acetaminophen* (TYLENOL EXTRA STRENGTH*) 500 Mg Tablet 500 MG ORAL Q8H PRN for Prn Headache/Temp > 101, #30 TAB 0 Refills Prov: Aubrey Acosta MD 06/22/20 [facility] 24 hour /7 days a week by Appointment Only [address] [facility] [id number] Patient Instructions: Tendlaurentis, [id number] Aubrey Acosta MD Jun 22, 2020 17:00
== END 2020-06-22 15:15 | disposition home or self-care (01) ==
LOC: EMR 14:30
DX: M25.531 Pain in right wrist (principal)
CPT/HCPCS: 73110; Z7502; 99283